=== PATIENT | male | born 1995 | race Caucasian/White ===

== ENCOUNTER 2025-02-14 17:17 | Emergency (ER) | payer BC, SELFPAY ==
[2025-02-14 17:28] VITALS: BP 135/89; PULSE 90; RESP 16; TEMP 36.2; O2SAT 99
--- NOTE | 2025-02-14 18:10 | ED_ITS ---
HPI - Nausea/Vomiting/Diarrhea General Chief complaint: Nausea/Vomiting/Diarrhea Stated complaint: Diarrhea/Burps Time Seen by Provider: 02/14/25 17:45 Source: patient and RN notes reviewed Mode of arrival: ambulatory Limitations: no limitations History of Present Illness HPI Narrative: 29-year-old male presents Express Care complaining of belching and diarrhea for approximately 2 weeks. Patient said he recently while on a cruise in [place] before [facility] cruise is doctor increased his Ozempic 2 mg from 1 mg. Two days into the cruise he developed intermittent diarrhea of this brought in watery and loose at times followed by increasing amount of belching, he states smells like burnt popcorn. Patient called his PCP who told to come in today at the urgent care for further evaluation since he cannot get him in. Patient denies any nausea, vomiting, chest pain, difficulty breathing, fevers, body aches, chills, or any other symptoms. Related Data Home Medications ?Medication ?Instructions ?Recorded ?Confirmed ?Last Taken ?Type semaglutide 1 mg/dose (4 mg/3 mL) mg subcut 02/14/25 Unknown History subcutaneous pen injector (Ozempic) valacyclovir 500 mg tablet mg 02/14/25 Unknown Histor y Allergies Allergy/AdvReac Type Severity Reaction Status Date / Time No Known Allergies Allergy Verified 02/14/25 17:30 Review of Systems Review of Systems: CONSTITUTIONAL: Denies fever, body aches, chills, or sweats. EYES: Denies visual changes, redness, or discharge. ENT: Denies rhinorrhea, congestion, sore throat, or otalgia. CARDIOVASCULAR: Denies chest pain, palpitations, or edema. RESPIRATORY: Denies cough or dyspnea. GASTROINTESTINAL: Denies abdominal pain, nausea, vomiting, black tarry stools,. Positive for diarrhea and belching. GENITOURINARY: Denies dysuria or hematuria. SKIN: Denies rash or itching. MUSCULOSKELETAL: Denies back pain, joint pain, or myalgia. NEUROLOGIC: Denies headache, numbness, or weakness. PSYCHIATRIC: Denies anxiety or depression. All other systems reviewed are negative, except as documented in HPI. PMFSH Comments At the time of my signature, I reviewed and agree with the nursing past medical, surgical, social, and family history. There is no relevant family history pertinent to the patient complaint. Exam Narrative: GENERAL: This is a well-nourished, well-developed adult, in no apparent distress. They are non ill-appearing, nontoxic appearing. Patient morbidly obese, physical exam limited due to large body habitus. HEAD: normocephalic, atraumatic. EYES: Sclera clear/white. Conjunctiva normal. Vision is grossly intact. Extraocular movements intact EARS: External ears normal, Hearing grossly intact. NOSE: External nose normal THROAT: Mucous membranes moist, NECK: Neck supple, CARDIOVASCULAR: Regular rate and rhythm without murmurs, gallops, or rubs. RESPIRATORY: Clear to auscultation. Breath sounds equal bilaterally. No wheezes, rales, or rhonchi. GASTROINTESTINAL: Abdomen soft, large, non-tender, nondistended. Bowel sounds are active. No hepato-splenomegaly, or palpable masses. No guarding or rigidity. SKIN: warm, Dry, intact with no suspicious lesions or rash, good texture and turgor. NEURO: awake, alert, and oriented to person, place and time. There were no obvi ous focal neurologic abnormalities. EXTREMITIES: No joint tenderness, effusion, or edema noted. BACK: Nontender without deformity. No CVA tenderness. Course Course Emergency Course: Portions of this record may have been created with voice recognition software Level of Care: Express Care Visit Vital Signs Vital signs: Vital Signs Temperature 97.1 F L 02/14/25 17:28 Pulse Rate 90 02/14/25 17:28 Respiratory Rate 16 02/14/25 17:28 Blood Pressure 135/89 02/14/25 17:28 Pulse Oximetry 99 02/14/25 17:28 Temperature 97.1 F L 02/14/25 17:28 Pulse Rate 90 02/14/25 17:28 Respiratory Rate 16 02/14/25 17:28 Blood Pressure 135/89 02/14/25 17:28 Pulse Oximetry 99 02/14/25 17:28 Reviewed MDM - Nausea/Vomiting/Diarrhea MDM Narrative Medical decision making narrative: No Peritoneal findings, abdomen nontender. Symptoms likely related to Ozempic. Discussed supportive management and advise to monitor symptoms for next week and have close follow-up with PCP. Patient is not clinically dehydrated, moist music membranes, no tachycardia. Discussed physical exam findings. Advised supportive measures and signs/symptoms to go to the ER. Pt is appropriate for outpt treatment and f/u. Differential Diagnosis Differential diagnosis: Likely traveler's diarrhea, gastroenteritis and other (Medication side effect, small-bowel obstruction, gastroparesis) Critical Care Time Critical Care Time Critical Care Time: No Discharge Plan Discharge Clinical Impression: Medication reaction Qualifiers: Encounter type: initial encounter Qualified Code(s): T50.905A - Adverse effect of unspecified drugs, medicaments and biological substances, initial encounter Patient Disposition: Home Condition: Stable Instructions: Semaglutide (By injection) Additional Instructions: Your symptoms are likely related to your Ozempic. Your symptoms started improving the next week or 2. Please allow the diarrhea run its course. You may use gas X [id number] to help with belching. Follow instructions on the bottle. Drink plenty of fluids, supplement with electrolyte solutions such as Pedialyte. Follow-up PCP in 1 week. He developed severe abdominal pain, fevers, nausea, vomiting, worsening diarrhea, concerns of dehydration or any serious concerns please go to the ER immediately. Patient Language: Lao Prescriptions: No Action valacyclovir 500 mg tablet Ozempic 1 mg/dose (4 mg/3 mL) pen injector SUBCUT Follow-up/Referrals: PHYSICIAN,[facility] [Primary Care Provider, Internal Medicine] Time of Disposition: 18:08
== END 2025-02-14 18:09 | disposition home or self-care (01) ==
DX: R19.7 Diarrhea, unspecified (principal); R14.2 Eructation; T38.3X5A Adverse effect of insulin and oral hypoglycemic [antidiabetic] drugs, initial encounter
CPT/HCPCS: 99211; G0463